=== PATIENT | female | born 1955 | race Caucasian/White ===

== ENCOUNTER → 2017-09-14 | Outpatient (CLI) | payer OTHER | LOC: FIMAGING 15:06 | PROVIDERS: ATTEND Obstetrics & Gynecology Gynecology | DX: Z12.31 Encounter for screening mammogram for malignant neoplasm of breast (principal); Z80.3 Family history of malignant neoplasm of breast | CPT/HCPCS: G0202 ==

== ENCOUNTER → 2018-10-31 | Outpatient (CLI) | payer OTHER | LOC: FIMAGING 13:11 | PROVIDERS: ATTEND Internal Medicine | DX: Z13.820 Encounter for screening for osteoporosis (principal); M85.89 Other specified disorders of bone density and structure, multiple sites ==

== ENCOUNTER 2018-11-06 08:55 | Emergency (ER) | payer OTHER ==
--- NOTE | 2018-11-06 09:41 | EDPHY ---
H & P Stated Complaint: FACE LIFT TUESDAY/HAVING ABD PAIN/NAUSEA/CONSTIPATION Time Seen by Provider: 11/06/18 09:17 HPI/ROS: CHIEF COMPLAINT: Unable to have bowel movement HISTORY OF PRESENT ILLNESS: 63-year-old female s/p face lift 4 days ago presents with constipation. She took Vicodin for the 1st 24 hr after surgery, but now is taking Tylenol. However she has been unable to have a bowel movement since surgery. She feels the urge to defecate, but is unable. Associated with rectal discomfort. Also feels that the perineum is swollen. Difficulty urinating started this morning. Drinking plenty of fluids. No abdominal pain or fever. REVIEW OF SYSTEMS: complete 10 point ROS reviewed and is negative except for the noted elements in the HPI - Personal History Current Tetanus Diphtheria and Acellular Pertussis (TDAP): Unsure - Medical/Surgical History Hx Asthma: No Hx Chronic Respiratory Disease: No Hx Diabetes: No Hx Cardiac Disease: No Hx Renal Disease: No Hx Cirrhosis: No Hx Alcoholism: No Hx HIV/AIDS: No Hx Splenectomy or Spleen Trauma: No Other PMH: FACE LIFT ORTHO SURG - Social History Smoking Status: Never smoked Alcohol Use: Sober Drug Use: None - Physical Exam Exam: General Appearance: Alert, pleasant Eyes: Pupils equal and round, right periorbital ecchymoses, sutures present upper eyelid ENT, Mouth: Mucous membranes moist Neck: Normal inspection anteriorly Respiratory: Lungs are clear to auscultation Cardiovascular: Regular rate and rhythm Gastrointestinal: Abdomen is soft and nontender : no visible vulvar/perineal swelling Rectal: Hemorrhoids present, non-thrombosed, brown stool present, no fecal impaction Neurological: A&O, nonfocal, normal gait Skin: Warm and dry, no rash Extremities: Normal inspection Psychiatric: Mood and affect normal Constitutional: Initial Vital Signs Temperature (C) 36.5 C 11/06/18 09:04 Heart Rate 83 11/06/18 09:04 Respiratory Rate 16 11/06/18 09:04 Blood Pressure 117/71 11/06/18 09:04 O2 Sat (%) 98 11/06/18 09:04 O2 Delivery Mode Room Air Allergies/Adverse Reactions: No Known Allergies Allergy (Verified 11/06/18 09:03) Home Medications: Medication Instructions Recorded [place]erg[place] 01/02/12 Levothyroxine Sodium [SYNTHROID] 01/02/12 Progesterone 01/02/12 buPROPion [Wellbutrin] 75 mg PO DAILY 01/02/12 Wickes 5-325 Tablet 11/06/18 Spironolactone 11/06/18 Medical Decision Making ED Course/Re-evaluation: This patient presents with lower abdominal discomfort and inability to have bowel movement after taking Vicodin. Soapsuds enema given, after which the patient had a large BM and felt much better. Pain has resolved and able to urinate. Abdomen remained soft and nontender. Sent home with magnesium citrate. Differential Diagnosis: Differential diagnosis includes though it is not limited to appendicitis, cholecystitis, diverticulitis, pyelonephritis, bowel perforation, small bowel obstruction. - Data Points Medications Given: Discontinued Medications Magnesium Citrate (Magnesium Citrate) 300 ml PO EDNOW ONE Stop: 11/06/18 10:59 Last Admin: 11/06/18 11:07 Dose: 300 ml Departure - Departure Disposition: Home, Routine, Self-Care Clinical Impression: Constipation Qualifiers: Constipation type: drug induced constipation Qualified Code(s): K59.03 - Drug induced constipation Condition: Good Instructions: Constipation (ED), High Fiber Diet (ED) Additional Instructions: Drink plenty of fluids. Use Dulcolax OTC as needed for constipation. Return for recurrent abd pain, worsening symptoms, any concerns. Referrals: Dioni Chu DO [Medical Doctor] - As per Instructions
[2018-11-06] MEDS ORDERED: MAGNESIUM CITRATE 300 ML BOTTLE PO ONE (10:58)
[2018-11-06 11:01] VITALS: BP 121/72
== END 2018-11-06 11:08 | disposition home or self-care (01) ==
DX: K59.03 Drug induced constipation (principal); Z98.890 Other specified postprocedural states; Z79.891 Long term (current) use of opiate analgesic